=== PATIENT | female | born 1965 | race African-American/Black ===

== ENCOUNTER 2016-04-04 11:53 | Emergency (ER) | payer MEDICAID ==
[~2016-04-04] VITALS: Ht 170.2 cm; Wt 117.9 kg
[2016-04-04 12:17] VITALS: BP 172/91
== END 2016-04-04 12:26 | disposition home or self-care (01) ==
LOC: ER 11:58
DX: J02.9 Acute pharyngitis, unspecified (principal); J45.909 Unspecified asthma, uncomplicated; E11.9 Type 2 diabetes mellitus without complications

== ENCOUNTER 2018-07-06 11:52 | Emergency (ER) | payer MEDICAID ==
[~2018-07-06] VITALS: Ht 170.2 cm; Wt 113.4 kg
[2018-07-06 12:06] VITALS: BP 157/80
== END 2018-07-06 13:36 | disposition home or self-care (01) ==
LOC: ER 11:55
DX: M54.9 Dorsalgia, unspecified (principal); R51 Headache; R60.9 Edema, unspecified; J45.909 Unspecified asthma, uncomplicated; E11.9 Type 2 diabetes mellitus without complications; F17.210 Nicotine dependence, cigarettes, uncomplicated; V49.49XA Driver injured in collision with other motor vehicles in traffic accident, initial encounter; Y93.89 Activity, other specified; Y99.8 Other external cause status; Y92.410 Unspecified street and highway as the place of occurrence of the external cause

== ENCOUNTER 2022-10-09 19:44 | Emergency (ER) | payer MEDICAID ==
[~2022-10-09] VITALS: Ht 170.2 cm; Wt 100.0 kg
[2022-10-09 21:06] VITALS: BP 126/51; PULSE 83; RESP 18; TEMP 98.3; O2SAT 98
[2022-10-09] MEDS ORDERED: HYDROcodone-ACET 5/325MG TAB PO ONE (22:00)
[2022-10-10] MEDS ORDERED: HYDR-4902 PO (00:06)
== END 2022-10-10 04:18 | disposition home or self-care (01) ==
LOC: ER 19:44
DX: S06.0X1A Concussion with loss of consciousness of 30 minutes or less, initial encounter (principal); S43.402A Unspecified sprain of left shoulder joint, initial encounter; S43.401A Unspecified sprain of right shoulder joint, initial encounter; M50.30 Other cervical disc degeneration, unspecified cervical region; M51.36 Other intervertebral disc degeneration, lumbar region; S00.03XA Contusion of scalp, initial encounter; J45.909 Unspecified asthma, uncomplicated; E11.9 Type 2 diabetes mellitus without complications; V49.9XXA Car occupant (driver) (passenger) injured in unspecified traffic accident, initial encounter; W22.11XA Striking against or struck by driver side automobile airbag, initial encounter; Y93.89 Activity, other specified; Y92.488 Other paved roadways as the place of occurrence of the external cause; Y99.8 Other external cause status
CPT/HCPCS: 70450; 72125; 72131; 73030